=== PATIENT | female | born 1945 | race Caucasian/White ===

== ENCOUNTER 2017-11-03 20:12 | Inpatient (IN) | payer OTHER ==
[~2017-11-03] VITALS: Ht 162.6 cm; Wt 55.7 kg
[~2017-11-03 20:12] MED LIST: ACETAMINOPHEN325 M1 PO; ACETAMINOPHEN500 MG PO; ADVAIR 250/501 DISK IH; AMLODIPINE BESY10 MG PO; AMLODIPINE BESYL5 MG PO; AMOX TR-K CLV1 EAC4 PO; AMOXICILLIN500 MG PO; ATIVAN0.5 MG PO; ATIVAN1 MG PO; ATORVASTATIN CA20 MG PO; ATROVENT 00.5 MG/2.5 IH; AVELOX400 MG PO; Advair HFA 115/21 IH; Ativan PO; CELEXA10 MG PO; CELEXA20 MG PO; CITALOPRAM HBR20 M1 PO; CITALOPRAM HBR20 MG PO; COMBIVENT INH14.7 GM IH; DELTASONE20 MG PO; DUONEB 2.5-0.5 M3 ML IH; DUONEB3 ML IH; LEVAQUIN500 MG PO; LEVOFLOXACIN250 MG PO; LEVOTHROID,SY0.05 MG PO; LEVOTHYROXINE75 MCG PO; LEVOTHYROXINE88 MCG PO; LISINOPRIL10 MG PO; LISINOPRIL40 MG PO; LOPERAMIDE2 M1 PO; LOPERAMIDE2 MG PO; LOPRESSOR25 MG PO; LORAZEPAM0.5 MG PO; LORAZEPAM1 MG PO; Levaquin PO; Levothroid,Synthroid PO; METOPROLOL SUCC25 MG PO; METOPROLOL TART25 MG PO; Norvasc PO; OLANZAPINE2.5 MG PO; OLANZAPINE5 MG PO; ORABASE-B7 GM MM; PREDNISONE10 MG PO; PREDNISONE20 MG PO; PRINIVIL40 MG PO; PROMETHAZINE HC25 M1 PO; PROVENTIL,2.5 MG/3 M IH; Proventil,Ventolin H IH; QUETIAPINE FUMA25 MG PO; ROBITUSSIN AC,T10 ML PO; SEROQUEL12.5 MG PO; SEROquel PO; SPIRIVA1 INHALATI IH; SYNTHROID100 MCG PO; TIROSINT75 MCG PO; TYLENOL80 MG/0.8 PO; ZESTRIL,PRINIVI40 M1 PO; ZITHROMAX250 MG PO; Zestril,Prinivil PO; celeXA PO; predniSONE PO
[2017-11-03 21:49] LABS: BASOPHIL (%) 0.3 % (0-1); EOSINOPHIL (%) 0.4 % (0-5); HEMATOCRIT 39.5 % (36.0-46.0); HEMOGLOBIN 12.7 G/DL (11.9-15.5); IMMATURE GRANULOCYTE (%) 0.3 % (0.0-0.7); LYMPHOCYTE (%) 14.8 % (15-42); LYMPHOCYTE COUNT 1.1 K/uL (1.0-2.8); MCH 32.2 PG (29.0-34.0); MCHC 32.2 G/DL (30.0-36.0); MCV 100.3 FL (83-99); NEUTROPHIL (%) 70.2 % (45-76); NEUTROPHIL COUNT 5.1 K/uL (1.8-6.4); PLATELET COUNT 101 K/uL (156-360); RBC DIS.WIDTH-CV 12.9 % (11.8-14.6); RBC DIS.WIDTH-SD 48.2 % (39-53); RED BLOOD COUNT 3.94 M/uL (3.80-5.20); WHITE BLOOD COUNT 7.2 K/uL (4.1-10.2)
[2017-11-03 22:05] LABS: CHLORIDE 109 mEq/L (99-109); POTASSIUM 4.1 mEq/L (3.7-5.4); SODIUM 144 mEq/L (136-147)
[2017-11-03 22:06] LABS: GLUCOSE 94 mg/dL (70-99)
[2017-11-03 22:10] LABS: CREATININE 1.5 mg/dL (0.6-1.3); GFR ESTIMATE (CALCULATED) 36 mL/min/
[2017-11-03 22:11] LABS: UREA NITROGEN (BUN) 33 mg/dL (9-23)
[2017-11-03 22:16] LABS: TROP-I INTERPRETATION NEGATIVE; TROPONIN-I 0.02 ng/mL (0.0-0.30)
[2017-11-03 23:48] LABS: APPEARANCE CLEAR ((CLEAR)); BILIRUBIN NEGATIVE; BLOOD NEGATIVE; COLOR YELLOW ((YELLOW)); GLUCOSE (STRIP) NEGATIVE; KETONES NEGATIVE; LEUKOCYTES NEGATIVE; NITRITE NEGATIVE; PROTEIN (STRIP) 30; SPECIFIC GRAVITY 1.016 (1.000-1.030); UCUL ADDED? NO; UROBILINOGEN 0.2 MG/DL (0.2-1.0)
[2017-11-04] MEDS ORDERED: AMPICILLIN TRI500 MG PO (01:12)
[2017-11-04] MEDS ORDERED: LEVOTHYROXINE112 MCG PO (01:12)
[2017-11-04] MEDS ORDERED: OLANZAPINE7.5 MG PO (01:13)
[2017-11-04] MEDS ORDERED: CITALOPRAM HBR20 MG PO (01:13)
[2017-11-04] MEDS ORDERED: LOPRESSOR25 MG PO (01:14)
[2017-11-04] MEDS ORDERED: OLANZAPINE5 MG PO (01:15)
[2017-11-04] MEDS ORDERED: LORAZEPAM0.5 MG PO (01:15)
[2017-11-04] MEDS ORDERED: IMODIUM A-D2 M2 PO (01:24)
[2017-11-04] MEDS ORDERED: SILTUSSIN DM C473 ML PO (01:25)
[2017-11-04] MEDS ORDERED: METOPROLOL TART25 MG PO (01:29)
[2017-11-04 03:43] VITALS: BP 149/66
[2017-11-04 09:33] LABS: BASOPHIL (%) 0.3 % (0-1); EOSINOPHIL COUNT 0.1 K/uL (0-0.3); HEMATOCRIT 36.4 % (36.0-46.0); HEMOGLOBIN 11.6 G/DL (11.9-15.5); IMMATURE GRANULOCYTE (%) 0.3 % (0.0-0.7); MCH 32.1 PG (29.0-34.0); MCHC 31.9 G/DL (30.0-36.0); MCV 100.8 FL (83-99); MONOCYTE (%) 12.6 % (3-12); MONOCYTE COUNT 0.8 K/uL (0-0.8); NEUTROPHIL (%) 69.8 % (45-76); NEUTROPHIL COUNT 4.2 K/uL (1.8-6.4); PLATELET COUNT 86 K/uL (156-360); RBC DIS.WIDTH-SD 48.4 % (39-53); RED BLOOD COUNT 3.61 M/uL (3.80-5.20)
[2017-11-04 10:01] LABS: CHLORIDE 110 MEQ/L (99-109); CREATININE 1.3 MG/DL (0.6-1.3); GFR ESTIMATE (CALCULATED) 43 mL/min/; GLUCOSE 87 mg/dL (70-99); SODIUM 143 MEQ/L (136-147); UREA NITROGEN (BUN) 28 mg/dL (9-23)
[2017-11-04 11:33] VITALS: BP 128/60
[2017-11-04 19:21] VITALS: BP 142/63
[2017-11-05 00:14] VITALS: BP 113/56
[2017-11-05 06:14] LABS: HEMATOCRIT 35.3 % (36.0-46.0); HEMOGLOBIN 11.3 G/DL (11.9-15.5); MCH 32.1 PG (29.0-34.0); MCV 100.3 FL (83-99); PLATELET COUNT 90 K/uL (156-360); RBC DIS.WIDTH-SD 48.2 % (39-53); RED BLOOD COUNT 3.52 M/uL (3.80-5.20); WHITE BLOOD COUNT 6.6 K/uL (4.1-10.2)
[2017-11-05 06:41] LABS: CHLORIDE 112 MEQ/L (99-109); CREATININE 1.2 MG/DL (0.6-1.3); GFR ESTIMATE (CALCULATED) 47 mL/min/; GLUCOSE 83 mg/dL (70-99); POTASSIUM 4.5 MEQ/L (3.7-5.4); SODIUM 143 MEQ/L (136-147); UREA NITROGEN (BUN) 27 mg/dL (9-23)
[2017-11-05 08:19] VITALS: BP 110/58
[2017-11-05 16:42] VITALS: BP 120/60
[2017-11-05 19:32] VITALS: BP 114/53
[2017-11-05 23:36] VITALS: BP 139/67
[2017-11-06 03:50] VITALS: BP 141/65
[2017-11-06 07:59] VITALS: BP 139/72
[2017-11-06 12:33] VITALS: BP 111/55
[2017-11-06 16:30] VITALS: BP 121/72
[2017-11-06 19:22] VITALS: BP 126/69
[2017-11-06 23:46] VITALS: BP 139/63
[2017-11-07 03:45] VITALS: BP 134/61
[2017-11-07 07:09] VITALS: BP 139/74
[2017-11-07] MEDS ORDERED: LEVAQUIN750 MG PO (13:55)
[2017-11-07 15:01] VITALS: BP 131/62
== END 2017-11-07 16:22 | disposition hospice, home (50) | DRG 190 ==
LOC: EME → EDBD 20:12 → 5SOUTH 11-04 01:00 → EDOF 11-04 01:00 → ENRESERV 11-04 01:03 → 5SOUTH 11-04 03:34
PROVIDERS: Emergency Medicine; Internal Medicine
DX: J44.1 Chronic obstructive pulmonary disease with (acute) exacerbation (principal); J96.01 Acute respiratory failure with hypoxia; Z66 Do not resuscitate; G30.9 Alzheimer's disease, unspecified; F02.80 Dementia in other diseases classified elsewhere, unspecified severity, without behavioral disturbance, psychotic disturbance, mood disturbance, and anxiety; E78.5 Hyperlipidemia, unspecified; I11.0 Hypertensive heart disease with heart failure; I50.9 Heart failure, unspecified; E03.9 Hypothyroidism, unspecified; F17.200 Nicotine dependence, unspecified, uncomplicated; Z91.19 Patient's noncompliance with other medical treatment and regimen; K59.00 Constipation, unspecified; Z82.5 Family history of asthma and other chronic lower respiratory diseases
CPT/HCPCS: 71046; 80048; 81003; 84484; 85025; 85027; 87493; 93005; 94640; 94640 76; 94760; 94799; 99202; 99281; 99284; J1644; J1956; J2060; J3475